=== PATIENT | female | born 1995 | race Caucasian/White ===

== ENCOUNTER 2020-05-24 18:08 | Emergency (ER) | payer MEDICAID, OTHER ==
[~2020-05-24] VITALS: Ht 165.1 cm; Wt 60.8 kg
[2020-05-24 18:37] VITALS: BP 127/77
--- NOTE | 2020-05-24 19:20 | NUR ---
PATIENT A/OX4, BREATHING EVEN AND UNLABORED, NO SOB NOTED. AMBULATORY WITH STEADY GAIT. Patient discharged to home in stable condition. Written and verbal after care instructions given. Patient verbalizes understanding of instruction.
== END 2020-05-24 19:21 | disposition home or self-care (01) ==
LOC: ER 18:08
DX: R55 Syncope and collapse (principal); R42 Dizziness and giddiness; J45.909 Unspecified asthma, uncomplicated
CPT/HCPCS: 82962-TC

== ENCOUNTER 2021-11-24 12:43 | Emergency (ER) | payer BC, OTHER ==
[~2021-11-24] VITALS: Ht 167.6 cm; Wt 56.2 kg
--- NOTE | 2021-11-24 12:55 | NUR ---
BIB NEIGHBOR THIS 26YO/F WITH CC OF DIZZINESS, HEADACHE AND SHE "Was Dx with URI 2wks ago. Covid Negative then BUT Im NOT better". PATIENT ACCIDENTALLY HIT HER HEAD ON THE FRIDGE DOOR LAST NIGHT. WHEN SHE WOKE UP 6AM SHE HAD HEADACHE, DIZZINESS AND FEVER OF 101.2. PT TOOK 1000MG TYLENOL. NOT RELIEVED.
--- NOTE | 2021-11-24 13:00 | NUR ---
SEEB BY DR NGUYEN AT BEDSIDE
--- NOTE | 2021-11-24 13:32 | NUR ---
PT SIGNED WAIVER THAT DISCLAIMED THAT SHE IS .
--- NOTE | 2021-11-24 13:32 | NUR ---
ANIMAL IMPERSONATOR AT BEDSIDE.
[2021-11-24 13:38] LABS: BASOPHILS % (AUTO) 0.7 % (0.0-2.0); EOSINOPHILS % (AUTO) 0.7 % (0.0-6.0); HEMATOCRIT 38 % (33-45); HEMOGLOBIN 12.5 g/dL (11.5-14.8); LYMPHOCYTES # (AUTO) 0.2 K/uL (0.8-4.8); LYMPHOCYTES % (AUTO) 6.5 % (20.0-44.0); MEAN CORPUSCULAR HGB CONC 33 g/dl (31.0-36.0); MEAN CORPUSCULAR VOLUME 85 fL (82-100); MONOCYTES # (AUTO) 0.6 K/uL (0.1-1.30); MONOCYTES % (AUTO) 17.3 % (2.0-12.0); NEUTROPHILS # (AUTO) 2.5 K/uL (1.8-8.9); NEUTROPHILS % (AUTO) 74.8 % (43.0-81.0); PLATELET COUNT (AUTO) 217 K/uL (150-450); RED BLOOD CELL COUNT(AUTO) 4.46 MIL/uL (4.0-5.2)
[2021-11-24 13:43] LABS: CALCIUM, SERUM 9.1 mg/dL (8.5-10.1); CREATININE 0.8 mg/dL (0.6-1.3); POTASSIUM 3.2 mmol/L (3.5-5.1)
--- NOTE | 2021-11-24 13:55 | NUR ---
CT SCAN DONE.
[2021-11-24 14:02] LABS: EOSINOPHILS % (MANUAL) 1 % (0-4); LYMPHOCYTES % (MANUAL) 5 % (16-48); MONOCYTES % (MANUAL) 11 % (0-11.0); NEUTROPHILS % (MANUAL) 83 (42-76)
--- NOTE | 2021-11-24 14:25 | NUR ---
Patient discharged to home in stable condition. Written and verbal after care instructions given. Patient verbalizes understanding of instruction.
[2021-11-24 14:40] VITALS: BP 121/64
== END 2021-11-24 14:42 | disposition home or self-care (01) ==
LOC: ER 12:59
DX: B34.9 Viral infection, unspecified (principal)
CPT/HCPCS: 36415; 70450-TC; 80048-TC; 85025-TC

== ENCOUNTER 2022-01-19 23:47 | Emergency (ER) | payer BC, OTHER ==
[~2022-01-19] VITALS: Ht 170.2 cm; Wt 54.4 kg
[2022-01-20] MEDS ORDERED: ACETAMINOPHEN 325 MG TABLET ONE (00:56)
[2022-01-20] MEDS ORDERED: TDAP [DIPH/PERTUSSIS/TET] 0.5 ML VIAL IM ONE ×2 (00:57→01:00)
[2022-01-20] MEDS ORDERED: ACETAMINOPHEN 325 MG TABLET PO ONE (01:00)
[2022-01-20] MEDS ORDERED: NAPR-1009 PO (01:43)
[2022-01-20] MEDS ORDERED: AMOX-430 PO (01:43)
--- NOTE | 2022-01-20 01:45 | NUR ---
Patient discharged to home in stable condition. Written and verbal after care instructions given. Patient verbalizes understanding of instruction.
[2022-01-20 01:46] VITALS: BP 135/88
== END 2022-01-20 01:46 | disposition home or self-care (01) ==
LOC: ER 01-20 00:05
DX: S51.851A Open bite of right forearm, initial encounter (principal); J45.909 Unspecified asthma, uncomplicated; Z79.899 Other long term (current) drug therapy; W54.0XXA Bitten by dog, initial encounter; Y93.89 Activity, other specified; Y92.89 Other specified places as the place of occurrence of the external cause; Y99.8 Other external cause status
CPT/HCPCS: 73090-TC; 90715

== ENCOUNTER 2023-08-16 15:39 | Emergency (ER) | payer OTHER ==
[~2023-08-16] VITALS: Ht 170.2 cm; Wt 54.4 kg
[~2023-08-16 15:39] MED LIST: AMOX-430 PO; NAPR-1009 PO
[2023-08-16 16:24] LABS: BASOPHILS # (AUTO) 0.1 K/uL (0.0-0.2); BASOPHILS % (AUTO) 1.4 % (0.0-2.0); EOSINOPHILS % (AUTO) 0.4 % (0.0-6.0); HEMATOCRIT 37 % (33-45); HEMOGLOBIN 12.7 g/dL (11.5-14.8); LYMPHOCYTES # (AUTO) 2.3 K/uL (0.8-4.8); LYMPHOCYTES % (AUTO) 30.4 % (20.0-44.0); MEAN CORPUSCULAR HEMOGLOBIN 29 PG (26.0-33.0); MEAN CORPUSCULAR HGB CONC 34 g/dl (31.0-36.0); MEAN CORPUSCULAR VOLUME 85 fL (82-100); MONOCYTES # (AUTO) 0.5 K/uL (0.1-1.30); MONOCYTES % (AUTO) 6.3 % (2.0-12.0); NEUTROPHILS # (AUTO) 4.6 K/uL (1.8-8.9); NEUTROPHILS % (AUTO) 61.5 % (43.0-81.0); PLATELET COUNT (AUTO) 259 K/uL (150-450); RED BLOOD CELL COUNT(AUTO) 4.41 MIL/uL (4.0-5.2); RED CELL DISTRIBUTION WIDTH 13.5 % (11.5-15.0); WHITE BLOOD COUNT (AUTO) 7.5 K/uL (4.3-11.0)
[2023-08-16] MEDS ORDERED: predniSONE 20 MG TABLET ONE (16:35)
[2023-08-16] MEDS: predniSONE 50 MG TABLET PO ONE (16:38)
[2023-08-16 16:42] LABS: CALCIUM, SERUM 9.2 mg/dL (8.5-10.1); CARBON DIOXIDE 23 mmol/L (21-32); CHLORIDE 103 mmol/L (98-107); CREATININE 0.8 mg/dL (0.6-1.3); GLUCOSE 94 mg/dL (74-106); POTASSIUM 3.1 mmol/L (3.5-5.1); SODIUM SERUM 136 mmol/L (136-145); UREA NITROGEN, BLOOD 11 mg/dL (7-18)
[2023-08-16] MEDS ORDERED: ALBUTEROL FS 2.5 MG/3 ML VIAL.NEB ONE (16:44)
[2023-08-16] MEDS ORDERED: IPRATROPIUM NEB FS 0.5 MG/2.5 ML AMPUL.NEB ONE (16:44)
[2023-08-16 16:50] VITALS: O2SAT 99
[2023-08-16] MEDS: IPRATROPIUM NEB FS 0.5 MG/2.5 ML AMPUL.NEB NEB ONE (16:50)
[2023-08-16] MEDS: ALBUTEROL FS 2.5 MG/3 ML VIAL.NEB NEB ONE (16:50)
[2023-08-16 17:10] VITALS: O2SAT 99
[2023-08-16 17:17] LABS: PREGNANCY TEST URINE QUAL NEGATIVE (NEGATIVE)
[2023-08-16] MEDS ORDERED: POTASSIUM CHLORIDE 20 MEQ TAB.PRT.SR PO ONE (18:44)
[2023-08-16] MEDS: POTASSIUM CHLORIDE 20 MEQ TAB.PRT.SR PO ONE (18:57)
[2023-08-16 18:59] VITALS: BP 118/68; TEMP 97.8; O2SAT 99
== END 2023-08-16 18:59 | disposition home or self-care (01) ==
LOC: ER 15:46
DX: R07.89 Other chest pain (principal); R06.02 Shortness of breath; R10.2 Pelvic and perineal pain; J45.909 Unspecified asthma, uncomplicated; Z20.822 Contact with and (suspected) exposure to COVID-19; Z79.899 Other long term (current) drug therapy
CPT/HCPCS: 99285; 71045; 87426; 93005; 87804 ×2; 85025; 80048; 84703; 36415; 84484 ×2; 94640; J7512

== ENCOUNTER 2024-01-18 11:58 | Emergency (ER) | payer OTHER ==
[~2024-01-18] VITALS: Ht 170.2 cm; Wt 54.4 kg
[2024-01-18] MEDS ORDERED: IBUPROFEN 600 MG TABLET ONE (12:24)
[2024-01-18] MEDS: IBUPROFEN 600 MG TABLET PO ONE (12:27)
[2024-01-18 13:05] VITALS: BP 125/85; TEMP 98.4; O2SAT 99
== END 2024-01-18 13:05 | disposition home or self-care (01) ==
LOC: ER 12:05
DX: R07.89 Other chest pain (principal); Z79.899 Other long term (current) drug therapy
CPT/HCPCS: 71045-TC